=== PATIENT | male | born 1940 | race Caucasian/White ===

== ENCOUNTER 2017-02-19 06:28 | Outpatient (CLI) | payer MEDICARE, OTHER ==
[2017-02-19 07:05] LABS: BILIRUBIN,DIRECT 0.1 mg/dL (0.1-0.5); BILIRUBIN,TOTAL 0.7 mg/dL (0.2-1.0); TOTAL PROTEIN 6.4 g/dL (6.7-8.2)
[2017-02-19 07:39] LABS: HEMOGLOBIN A1C 0.82 g/dL
[2017-02-19 08:03] LABS: PSA FREE 1.57 ng/mL (0.16-2.81)
[2017-02-19 08:04] LABS: PSA TOTAL 6.96 ng/mL (0.000-2.000)
== END 2017-02-19 06:29 | disposition home or self-care (01) ==
LOC: LAB 06:28
PROVIDERS: ATTEND Internal Medicine
DX: R97.20 Elevated prostate specific antigen [PSA] (principal); Z79.899 Other long term (current) drug therapy; E11.9 Type 2 diabetes mellitus without complications
CPT/HCPCS: 36415; 80076; 83036; 84154

== ENCOUNTER 2017-04-18 06:50 | Outpatient (CLI) | payer MEDICARE, OTHER ==
[2017-04-18 07:38] LABS: BILIRUBIN,TOTAL 0.6 mg/dL (0.2-1.0); TOTAL PROTEIN 6.5 g/dL (6.7-8.2)
[2017-04-18 07:56] LABS: BILIRUBIN,DIRECT < 0.1 mg/dL (0.1-0.5)
== END 2017-04-18 06:51 | disposition home or self-care (01) ==
LOC: LAB 06:50
PROVIDERS: ATTEND Podiatrist Foot & Ankle Surgery
DX: B35.1 Tinea unguium (principal)
CPT/HCPCS: 36415; 80076

== ENCOUNTER 2017-06-08 08:00 | Day surgery (SDC) | payer MEDICARE, OTHER ==
[2017-06-08] MEDS ORDERED: LACTATED RINGERS 1,000 ML IV ONE (08:18)
[2017-06-08] MEDS ORDERED: fentaNYL 100 MCG/2 ML VIAL IVP ONE (09:49)
[2017-06-08] MEDS ORDERED: MIDAZOLAM 2 MG/2 ML VIAL IVP ONE (09:49)
[2017-06-08 10:46] VITALS: BP 97/50
== END 2017-06-08 08:01 | disposition home or self-care (01) ==
LOC: SDS 08:00
PROVIDERS: ATTEND Surgery
PROC: 0DJD8ZZ Inspection of Lower Intestinal Tract, Via Natural or Artificial Opening Endoscopic (ICD-10-PCS; principal; 2017-06-08 09:00)
DX: Z85.038 Personal history of other malignant neoplasm of large intestine (principal); K57.30 Diverticulosis of large intestine without perforation or abscess without bleeding; Z90.49 Acquired absence of other specified parts of digestive tract; I10 Essential (primary) hypertension; E78.5 Hyperlipidemia, unspecified; E11.9 Type 2 diabetes mellitus without complications; Z79.4 Long term (current) use of insulin; Z79.82 Long term (current) use of aspirin; Z87.891 Personal history of nicotine dependence
CPT/HCPCS: 45378; J7120

== ENCOUNTER 2017-11-23 09:21 | Outpatient (CLI) | payer MEDICARE, OTHER ==
[2017-11-23 10:51] LABS: HB2 TOTAL 17.5 g/dL; HEMOGLOBIN A1C 1.02 g/dL; HEMOGLOBIN A1C % 7.5 % (4.6-6.2)
== END 2017-11-23 09:22 | disposition home or self-care (01) ==
LOC: LAB 09:21
PROVIDERS: ATTEND Internal Medicine
DX: E11.9 Type 2 diabetes mellitus without complications (principal)
CPT/HCPCS: 36415; 83036

== ENCOUNTER 2017-11-28 13:57 | Outpatient (CLI) | payer MEDICARE, OTHER ==
[2017-11-28 14:58] LABS: PSA FREE 1.31 ng/mL (0.16-2.81)
[2017-11-28 14:59] LABS: PSA TOTAL 6.73 ng/mL (0.000-2.000)
== END 2017-11-28 13:58 | disposition home or self-care (01) ==
LOC: LAB 13:57
PROVIDERS: ATTEND Urology
DX: R97.20 Elevated prostate specific antigen [PSA] (principal)
CPT/HCPCS: 36415; 84154